=== PATIENT | male | born 1985 | race Caucasian/White ===

== ENCOUNTER 2023-07-04 05:56 | Emergency (ER) | payer OTHER, SELFPAY ==
[2023-07-04 06:07] VITALS: BP 165/92; PULSE 89; RESP 18; TEMP 36.4; O2SAT 98
--- NOTE | 2023-07-04 06:20 | ED.GENADULT ---
HPI - General Adult General Chief complaint: Upper Respiratory Infection <Lyle Alvarez MD - Last Filed: 07/04/23 06:23> Stated complaint: abd pain, runny nose, cough, loss of taste <Lyle Alvarez MD - Last Filed: 07/04/23 06:23> Time Seen by Provider: 07/04/23 06:09 <Lyle Alvarez MD - Last Filed: 07/04/23 06:23> History of Present Illness HPI narrative: Patient 37-year-old gentleman who presents the emergency room with chief complaint of flulike symptoms. Patient reports that for the last week to week and a half he has had body aches sore throat runny nose loss of taste and appetite patient states that he had a dry cough patient reports he had body aches with this patient states he is concerned that he has COVID. Patient reports that he is also had increased urinary frequency. <Lyle Alvarez MD - Last Filed: 07/04/23 06:23> Related Data Allergies/adverse reactions: Allergies Allergy/AdvReac Type Severity Reaction Status Date / Time Penicillins Allergy Hives Verified 07/04/23 05:57 <Lyle Alvarez MD - Last Filed: 07/04/23 06:23> Review of Systems Review of Systems: A 10 system review of systems was completed on the patient and is negative except for what is stated in the HPI. Nursing and ancillary documentation was reviewed. <Lyle Alvarez MD - Last Filed: 07/04/23 06:23> Exam Narrative: GENERAL: Well-appearing, well-nourished, and in no acute distress. HEAD: Normocephalic, atraumatic. EYES: PERRLA and EOMI. ENT: Nares clear, no rhinorrhea or epistaxis. Mucous membranes moist. NECK: Supple. CHEST: Clear to auscultation. No respiratory distress. HEART: Regular rate and rhythm. No murmur heard. Normal peripheral pulses. ABDOMEN: Soft, nontender, nondistended, normal active bowel sounds. EXTREMITIES: Normal range of motion. No edema. SKIN: Warm, dry, no rash. NEURO: No focal deficits. Alert and oriented x3. PSYCH: Normal mood and affect. <Lyle Alvarez MD - Last Filed: 07/04/23 06:23> Course Vital Signs Vital signs: Vital Signs Temperature 97.6 F 07/04/23 06:07 Pulse Rate 89 07/04/23 06:07 Respiratory Rate 18 07/04/23 06:07 Blood Pressure 165/92 H 07/04/23 06:07 Pulse Oximetry 98 07/04/23 06:07 Oxygen Delivery Room Air 07/04/23 06:07 Temperature 97.6 F 07/04/23 06:07 Pulse Rate 83 07/04/23 07:11 Respiratory Rate 18 07/04/23 07:11 Blood Pressure 142/77 H 07/04/23 07:11 Pulse Oximetry 98 07/04/23 07:11 Oxygen Delivery Room Air 07/04/23 06:07 <Lyle Alvarez MD - Last Filed: 07/04/23 06:23> Vital Signs Temperature 97.6 F 07/04/23 06:07 Pulse Rate 89 07/04/23 06:07 Respiratory Rate 18 07/04/23 06:07 Blood Pressure 165/92 H 07/04/23 06:07 Pulse Oximetry 98 07/04/23 06:07 Oxygen Delivery Room Air 07/04/23 06:07 Temperature 97.6 F 07/04/23 06:07 Pulse Rate 83 07/04/23 07:11 Respiratory Rate 18 07/04/23 07:11 Blood Pressure 142/77 H 07/04/23 07:11 Pulse Oximetry 98 07/04/23 07:11 Oxygen Delivery Room Air 07/04/23 06:07 <Akira Meade Miranda III, DO - Last Filed: 07/04/23 08:44> Medical Decision Making MDM Narrative Medical decision making narrative: Differential diagnosis includes viral syndrome, COVID-19, influenza, strep, UTI Patient is nontoxic-appearing not showing signs of sepsis. A urinalysis, COVID flu and strep test have been ordered. <Lyle Alvarez MD - Last Filed: 07/04/23 06:23> Differential diagnosis includes viral syndrome, COVID-19, influenza, strep, UTI Patient is nontoxic-appearing not showing signs of sepsis. A urinalysis, COVID flu and strep test have been ordered. UA and strep, flu, and covid all negative. likely viral uri. ok to discharge home. explained results and pt seems satisfied. <Akira Miranda III, DO - Last Filed: 06/13
[2023-07-04 06:49] LABS: Strep Group A RT-PCR NOT DETECTED (Negative)
[2023-07-04 06:57] LABS: Appearance Urine Clear (Clear); Bilirubin Urine Negative (Negative); Blood Urine Negative (Negative); Color Urine Yellow (Yellow); Glucose Urine UA Negative (Negative); Ketones Urine Negative (Negative); Leukocyte Esterase Ur Negative LEU/UL (Negative); Nitrate Urine Negative (Negative); Protein Urine Negative (Negative); Specific Grav Ur 1.021 (1.001-1.035); Urobilinogen Urine 0.2 mg/dL (<2.0)
[2023-07-04 07:02] LABS: Influenza A QL RT-PCR Negative (Negative); Influenza B QL RT-PCR Negative (Negative); SARS-CoV-2 RNA PCR Negative (Negative)
[2023-07-04 07:11] VITALS: BP 142/77; PULSE 83; RESP 18; O2SAT 98
[2023-07-04 07:11] LABS: Add Urine Microscopic? NO
== END 2023-07-04 07:29 | disposition home or self-care (01) ==
PROVIDERS: Emergency Medicine; Emergency Provider Emergency Medicine
DX: J06.9 Acute upper respiratory infection, unspecified (principal); Z20.822 Contact with and (suspected) exposure to COVID-19
CPT/HCPCS: 81003; 87636; 87651; 99283